=== PATIENT | female | born 1990 | race Caucasian/White ===

== ENCOUNTER → 2016-09-04 | Outpatient (CLI) | payer MEDICAID ==
[~2016-09-04] MED LIST: BETAMETHASONE SOD PHOS/ACETATE SUSP 30 MG/5 ML VIAL IM SCH; IBUP-232 PO; MACR100C2 PO; SENN1TAB PO
== END ==
LOC: HOBG 10:44
PROVIDERS: ATTEND Obstetrics & Gynecology
DX: O60.02 Preterm labor without delivery, second trimester (principal)
CPT/HCPCS: 96372; J0702

== ENCOUNTER → 2016-09-05 | Outpatient (CLI) | payer MEDICAID | LOC: HOBG 12:03 | PROVIDERS: ATTEND Obstetrics & Gynecology | DX: O60.02 Preterm labor without delivery, second trimester (principal) | CPT/HCPCS: 96372 ==

== ENCOUNTER 2016-09-25 20:41 | Emergency (ER) | payer MEDICAID ==
[2016-09-25] MEDS ORDERED: LACTATED RINGER'S 1000 ML INJ 1,000 ML IV SCH (21:34)
[2016-09-25] MEDS ORDERED: TERBUTALINE INJ 1 MG/ML AMP SQ PRN (21:45)
[2016-09-25 22:30] LABS: BACTERIA, URINE OCC /hpf; BLOOD, URINE NEG (NEG); COMMENT (UR) CULTURE INDICATED; CULTURE IF INDICATED CULTURE INDICATED; GLUCOSE,URINE NEG (NEG); KETONE, URINE NEG (NEG); MUCUS URINE FEW /lpf (OCC); NITRITE,URINE NEG (NEG); PH, URINE 6.5 (5.0-8.5); SQUAMOUS EPITHELIAL CELL URINE 9 /hpf (0-5); URINE COLOR YELLOW (YELLW/STRAW)
[2016-09-25] MEDS ORDERED: MACR100C2 PO (22:44)
--- NOTE | 2016-09-25 22:44 | PD ---
HPI Chief Complaint Pain Date Seen: Sep 25, 2016 Travel History International Travel<30 Days: No Contact w/Intl Traveler<30Days: No Known Affected Area: No History of Present Illness HPI Patient is 25-year-old white female at 33 weeks [facility] presents complaining of abdominal pain pain that comes and goes and that her stomach tightens up. History of delivery at 36 weeks in the past. Patient denies bleeding or rupture the membranes, heart rate tracing is reactive and she is having a few contractions on the monitor. Para: 1 : 2 History Obstetric History Obstetric History 1 delivery at 36 weeks Social History Alcohol Use: No Tobacco Use: No Substance Abuse: No Allergies-Medications (Allergen,Severity, Reaction): Coded Allergies: Sulfa (Verified Allergy, Severe, HIVES, 09/11/16) Home Meds Active Scripts Nitrofurantoin Monohydrate Macrocrystals (Macrobid)100 Mg [id number] Mg PO BID 7 Days Ref 0 Prov:Walker Layton II, MD 09/25/16 Review of Systems General / Constitutional: No: Fever, Weight Gain, Chills, Other Eyes: No: Diploplia, Blurred Vision, Visual changes, Pain, Photophobia HENT: No: Headaches, Vertigo, Lightheadedness Cardiovascular: No: Irregular Rhythm, Chest Pain or Discomfort, Palpitations, Tachycardia, Syncope, Varicosities, Edema, Cyanosis Respiratory: No: Cough, Short of Breath, Other Gastrointestinal: Abdominal Pain, No: Nausea, Vomiting, Diarrhea Genitourinary: No: Decreased Urinary Output, Oliguria Musculoskeletal: No: Limited ROM, Weakness, Cramping, Edema, Pain Skin: No Rash, No Itching, No Dryness, No Lumps, No Change in Pigmentation, No Change in Nails, No Alopecia, No Lesions Neurologic: No: Weakness, Dizziness, Syncope, Focal Abnormalities, Coordination Problem, Headache, Slurred Speech, Seizures Psychiatric: No: Depression, Suicidal Ideations, Homicidal Ideation Endocrine: No: Heat Intolerance, Cold Intolerance, Polydipsia, Polyuria, Other Physical Exam Narrative GENERAL: Well-nourished, well-developed patient. SKIN: Warm and dry. HEAD: Normocephalic and atraumatic. EYES: No scleral icterus. No injection or drainage. ENT: No nasal drainage noted. Mucous membranes pink. Airway patent. NECK: Supple, trachea midline. No JVD. CARDIOVASCULAR: Regular rate and rhythm without murmurs, gallops, or rubs. RESPIRATORY: Breath sounds equal bilaterally. No accessory muscle use. BREASTS: Bilateral exam showed no masses , no retractions, no nipple discharge. ABDOMEN/GI: Abdomen soft, non-tender, bowel sounds present, no rebound, no guarding Gravid to [33-] weeks size Fundal Height: [-33] GENITOURINARY: External Genitalia: intact and normal in appearance BUS glands: [-] Cervix: [-] Dilatation: [2-3] Effacement: [50-] Station: [-3] Presentation: [vtx-] Membranes: [intact ] Uterine Contractions: [-Initially melia irregularly every 3-5 minutes of our with a liter of IV fluid and subcutaneous terbutaline contractions decreased to essentially gone] FHT's: Category: [-1] Baseline: [133-] Reactive: [-yes] Variability: [mod-] Decels: [none-] EXTREMITIES: No cyanosis or edema. BACK: Nontender without obvious deformity. No CVA tenderness. NEUROLOGICAL: Awake and alert. Motor and sensory grossly within normal limits. Five out of 5 muscle strength in all muscle groups. Normal speech. Data Data Orders Vital Signs (Adult) .ON ADMISSION (09/25/16 21:34) ^ Labor Status (09/25/16 21:34) Urinalysis - C+S If Indicated (09/25/16 21:34) Fibronectin (09/25/16 21:34) Lactated Ringer's 1000 Ml Inj (Lr 1000 M (09/25/16 21:34) Terbutaline Inj (Brethine Inj) (09/25/16 21:45) Fentanyl Inj (Fentanyl Inj) (09/25/16 21:45) Urine Culture (09/25/16 21:00) Labs FFN positive Laboratory Tests Test 09/25/16 21:00 Urine Color YELLOW Urine Turbidity HAZY Urine pH 6.5 Urine Specific [place] 1.019 Urine Protein TRACE Urine Glucose (UA) NEG Urine Ketones NEG Urine Occult Blood NEG Urine Nitrite NEG Urine Bilirubin NEG Urine Urobilinogen LESS THAN 2.0 Urine Leukocyte Esterase LARGE Urine WBC 9 Urine Squamous Epithelial 9 Cells Urine Bacteria OCC Urine Mucus FEW Microscopic Urinalysis Comment CULTURE INDICATED Date/Time Procedure Status Source Growth 09/25/16 21:00 Urine Culture Received Urine Clean Catch Pending MDM Interpretation(s) Patient is a 25-year-old white female at 33 weeks presents complaining of abdominal pain denies bleeding or ruptured membranes. heart rate tracing is reactive, she is melia irregularly every 3-5 minutes. Her cervix is 2- 3/50 and -3, urinalysis is positive for large leukocyte esterase occasional bacteria but culture was indicated therefore we will treat with Macrobid 100 twice a day for a week, the contractions were ongoing interval liter of IV fluid and .25 terbutaline SQ and this essentially stopped her contractions. Her FFN is positive , she has received 2 doses of betamethasone last week just due to her history Plan Plan for patient take oral Macrobid antibiotic for UTI increase her bed rest at home Tylenol for pains increase her oral fluid intake, she can use a heating pad on low across the abdomen or soak in a bathtub.will give po terb 5 mg q 6 hr for CTXs, she needs to be at bedrest as much as possible, She is to follow- up with her OB provider or back to us if symptoms persist or worsen Diagnosis Diagnosis: Primary Impression: Threatened labor, antepartum Additional Impression: UTI (urinary tract infection) during Disposition: 01 DISCHARGE HOME Condition: Stable Scripts Nitrofurantoin Monohydrate Macrocrystals (Macrobid)100 Mg [id number] Mg PO BID 7 Days Ref 0 Prov:Walker Layton II, MD 09/25/16 Patient Instructions: General Instructions, Labor (ED), Abdominal Pain in (ED) Additional Instructions: RETURN FOR CONTRACTIONS, LOSS OF FLUID (WATER BREAKING), VAGINAL BLEEDING, OR DECREASED MOVEMENT DRINK 8-10 LARGE GLASSES OF WATER EVERY DAY KEEP SCHEDULED APPOINTMENT WITH YOUR PROVIDER Departure Forms: Tests/Procedures Walker Layton II, MD Sep 25, 2016 22:44
== END 2016-09-25 23:16 | disposition home or self-care (01) ==
LOC: HOBED 20:41
DX: O60.03 Preterm labor without delivery, third trimester (principal); O23.43 Unspecified infection of urinary tract in pregnancy, third trimester; Z3A.33 33 weeks gestation of pregnancy
CPT/HCPCS: 59025; 81001; 82731; 87086; 96360; 96372; J3105; J7120

== ENCOUNTER 2016-09-27 10:19 | Inpatient (IN) | payer MEDICAID ==
[~2016-09-27] VITALS: Ht 160 cm; Wt 60.8 kg
[2016-09-27] VITALS (45 sets, daily range): BP systolic 72–140; BP diastolic 53–125; PULSE 69–151; RESP 16–20; TEMP 97.6–98
[~2016-09-27 10:19] MED LIST changes: -BETAMETHASONE SOD PHOS/ACETATE SUSP 30 MG/5 ML VIAL IM SCH; -IBUP-232 PO; -SENN1TAB PO
--- NOTE | 2016-09-27 11:28 | HHI.HP ---
HPI Chief Complaint My water broke Date Seen: Sep 27, 2016 Travel History International Travel<30 Days: No Contact w/Intl Traveler<30Days: No Known Affected Area: No History of Present Illness HPI This patient is a 25-year-old white female at 34-1/2 weeks who presents with PROM today , no bleeding and only a few contractions. [facility] , and she was here 2 days ago for contractions she was 2-3 cm dilated and we did a fibronectin which was positive at that time she received a shot of steroids and the second shot the next day. And today is the day after that her water broke. heart rate tracing is reactive she is having occasional contractions amnio sure is positive today Para: 1 : 2 History Obstetric History Obstetric History 1 delivery at 36 weeks Social History Alcohol Use: No Tobacco Use: No Substance Abuse: No Allergies-Medications (Allergen,Severity, Reaction): Coded Allergies: Sulfa (Verified Allergy, Severe, HIVES, 09/11/16) Home Meds Active Scripts Nitrofurantoin Monohydrate Macrocrystals (Macrobid)100 Mg [id number] Mg PO BID 7 Days Ref 0 Prov:Walker Layton II, MD 09/25/16 Review of Systems General / Constitutional: No: Fever, Weight Gain, Chills, Other Eyes: No: Diploplia, Blurred Vision, Visual changes, Pain, Photophobia HENT: No: Headaches, Vertigo, Lightheadedness Cardiovascular: No: Irregular Rhythm, Chest Pain or Discomfort, Palpitations, Tachycardia, Syncope, Varicosities, Edema, Cyanosis Respiratory: No: Cough, Short of Breath, Other Gastrointestinal: No: Nausea, Vomiting, Diarrhea Genitourinary: No: Decreased Urinary Output, Oliguria Musculoskeletal: No: Limited ROM, Weakness, Cramping, Edema, Pain Skin: No Rash, No Itching, No Dryness, No Lumps, No Change in Pigmentation, No Change in Nails, No Alopecia, No Lesions Neurologic: No: Weakness, Dizziness, Syncope, Focal Abnormalities, Coordination Problem, Headache, Slurred Speech, Seizures Psychiatric: No: Depression, Suicidal Ideations, Homicidal Ideation Endocrine: No: Heat Intolerance, Cold Intolerance, Polydipsia, Polyuria, Other Physical Exam Narrative GENERAL: Well-nourished, well-developed patient. SKIN: Warm and dry. HEAD: Normocephalic and atraumatic. EYES: No scleral icterus. No injection or drainage. ENT: No nasal drainage noted. Mucous membranes pink. Airway patent. NECK: Supple, trachea midline. No JVD. CARDIOVASCULAR: Regular rate and rhythm without murmurs, gallops, or rubs. RESPIRATORY: Breath sounds equal bilaterally. No accessory muscle use. BREASTS: Bilateral exam showed no masses , no retractions, no nipple discharge. ABDOMEN/GI: Abdomen soft, non-tender, bowel sounds present, no rebound, no guarding Gravid to [34-] weeks size Fundal Height: [-34] GENITOURINARY: External Genitalia: intact and normal in appearance BUS glands: [-] Cervix: [-] Dilatation: [3-] Effacement: [60-] Station: [-3] Presentation: [-vtx] Membranes: ruptured] amnio sure positive Uterine Contractions: [-irreg] FHT's: Category: [1-] Baseline: [-133] Reactive: [yes-] Variability: [-mod] Decels: [-none] EXTREMITIES: No cyanosis or edema. BACK: Nontender without obvious deformity. No CVA tenderness. NEUROLOGICAL: Awake and alert. Motor and sensory grossly within normal limits. Five out of 5 muscle strength in all muscle groups. Normal speech. Data Data Labs Amnio sure positive Assessment/Plan Assessment and Plan This patient is a 25-year-old white female at 34-1/2 weeks who presents with premature rupture the membranes. Patient's denies bleeding or contraction pain. [facility] And records are available. GBS culture has not been done at this early both she will receive IV antibiotics because she's premature and needing delivery per ACOG guidelines for PPROM at 34 weeks Walker Layton II, MD Sep 27, 2016 11:28
[2016-09-27] MEDS ORDERED: CALCIUM GLUCONATE 10% 1 GM/10 ML VIAL IV PRN (11:30)
[2016-09-27] MEDS ORDERED: SODIUM CHLORIDE 0.9% FLUSH 10 ML FLUSH IV FLUSH PRN ×2 (11:30→19:45)
[2016-09-27] MEDS ORDERED: ONDANSETRON HCL 4 MG/2 ML VIAL IV PRN ×2 (11:30→18:00)
[2016-09-27] MEDS ORDERED: OXYTOCIN 30 UNITS-500ML PREMIX 500 ML IV SCH (11:30)
[2016-09-27] MEDS ORDERED: PENICILLIN G POTASSIUM INJ 5,000,000 UNITS in SODIUM CHLORIDE 0.9% INJ 100 ML IV SCH (11:30)
[2016-09-27] MEDS: LACTATED RINGER'S 1000 ML INJ 1,000 ML IV SCH ×2 (12:32→16:49)
[2016-09-27 13:25] LABS: AMPHETAMINE, URINE NEG (NEG); BARBITURATES, URINE NEG (NEG); COCAINE, URINE NEG (NEG)
[2016-09-27 14:49] LABS: AUTOMATED NEUTROPHIL # 8.9 TH/MM3 (1.8-7.7); BASOPHIL % 0.4 % (0.0-2.0); EOSINOPHIL # 0.1 TH/MM3 (0-0.4); EOSINOPHIL % 0.6 % (0.0-4.0); HEMATOCRIT 34.4 % (35.0-46.0); HEMO FLAGS DIFF FINAL; LYMPH % 13.3 % (9.0-44.0); LYMPHOCYTE # 1.5 TH/MM3 (1.0-4.8); MEAN CELL VOLUME 85.8 FL (80.0-100.0); MEAN CORPUSCULAR HGB CONC 33.8 % (32.0-36.0); NEUT % 80.7 % (16.0-70.0); PLATELET COUNT 183 TH/MM3 (150-450); RED BLOOD COUNT 4.02 MIL/MM3 (4.00-5.30); RED CELL DISTRIBUTION WIDTH 13.6 % (11.6-17.2)
[2016-09-27] MEDS ORDERED: PENICILLIN G POTASSIUM INJ 2,500,000 UNITS in SODIUM CHLORIDE 0.9% INJ 100 ML IV SCH (16:00)
[2016-09-27] MEDS ORDERED: DIPHTH/TETANUS/ACEL PERTUSSIS (BOOSTER) 0.5 ML VIAL/PFS IM ONE (16:00)
[2016-09-27] MEDS ORDERED: MEASLES, MUMPS, RUBELLA VACCINE 0.5 ML VIAL SQ ONE (16:00)
[2016-09-27] MEDS ORDERED: LACTATED RINGER'S 1000 ML INJ 1,000 ML IV PRN (17:46)
[2016-09-27] MEDS ORDERED: LIDOCAINE HCL 1% 50 ML VIAL INFIL PRN (18:00)
[2016-09-27] MEDS ORDERED: OXYTOCIN 30 UNITS-500ML PREMIX 500 ML IV ONE (18:00)
[2016-09-27] MEDS ORDERED: MINERAL OIL 10 ML VIAL TOPICAL PRN (18:00)
[2016-09-27] MEDS ORDERED: CITRIC ACID-SODIUM CITRATE LIQ 30 ML UDC PO SCH (18:00)
[2016-09-27] MEDS ORDERED: SODIUM CHLORID 0.9% 500 ML INJ 500 ML IV PRN (18:00)
[2016-09-27] MEDS ORDERED: SODIUM CHLOR 0.9% 1000 ML INJ 1,000 ML IV PRN (18:06)
--- NOTE | 2016-09-27 18:12 | PD.LABORPN ---
Subjective Subjective Patient is doing well. She is in pain from the labor. No fever, chills. Objective Vital Signs Vital Signs Date Time Temp Pulse Resp B/P Pulse Ox O2 Delivery O2 Flow Rate FiO2 09/27/16 17:11 20 09/27/16 17:11 97.6 09/27/16 14:15 98.0 09/27/16 14:06 88 124/69 09/27/16 13:27 89 140/91 09/27/16 12:00 18 09/27/16 11:51 98 133/82 Objective Pelvic Exam: Dilatation: 4 Effacement: 80 Station: -2 Presentation: Vertex Membranes: Rupture Uterine Contractions: q 2-3 minutes FHT's: Category: 1 Baseline: 135 Reactive: Yes Variability: Moderate Decels: Non-frequent variables Assessment/Plan Assessment and Plan Labor Continue current management If persistent variables, administer amnioinfusion Carlyle Quinn MD R2 Sep 27, 2016 18:12
[2016-09-27] MEDS ORDERED: fentaNYL 2MCG-BUPIV 0.125% INJ 100 ML ONE (18:14)
[2016-09-27] MEDS ORDERED: BUPIVACAINE HCL PF 0.25% 10 ML VIAL ONE (18:48)
[2016-09-27] MEDS ORDERED: ePHEDrine/NS 25 MG/5 ML SYR ONE (19:07)
[2016-09-27] MEDS ORDERED: NO SYSTEM NARCOTICS PRN (19:15)
[2016-09-27] MEDS ORDERED: fentaNYL 2MCG-BUPIV 0.125% 100 ML EPIDURAL SCH (19:15)
[2016-09-27] MEDS ORDERED: DO NOT ADMINISTER ANTICOAGULANTS PRN (19:15)
[2016-09-27] MEDS ORDERED: ePHEDrine/NS 25 MG/5 ML SYR IV PRN (19:15)
[2016-09-27] MEDS ORDERED: BENZOCAINE 20% TOPICAL SPRAY 60 ML CAN TOPICAL PRN (19:45)
[2016-09-27] MEDS ORDERED: ZOLPIDEM TARTRATE 5 MG TAB PO PRN (19:45)
[2016-09-27] MEDS ORDERED: ONDANSETRON ODT 4 MG TAB PO PRN (19:45)
[2016-09-27] MEDS ORDERED: ACETAMINOPHEN 325 MG TAB PO PRN (19:45)
[2016-09-27] MEDS ORDERED: ALUMINUM/MAGNESIUM/SIMETH 30 ML CUP PO PRN (19:45)
[2016-09-27] MEDS ORDERED: WITCH HAZEL 50%/GLYCERIN 12.5% 40 PAD JAR TOPICAL PRN (19:45)
[2016-09-27] MEDS ORDERED: DOCUSATE SODIUM 50 MG/SENNA 8.6 MG TAB PO PRN (19:45)
[2016-09-27 19:47] LABS: BLOOD GAS BASE EXCESS -4.6 mmol/L (-2-2); BLOOD GAS O2 HGB SATURATION 22 % (90-100); CORD BLOOD GAS HCO3 21 mmol/L (21-29); CORD BLOOD GAS PCO2 43 mmHG (34-78); CORD BLOOD GAS PH 7.31 (7.14-7.42); CORD BLOOD GAS PO2 15 mmHG (3.0-40.0)
--- NOTE | 2016-09-27 19:47 | PD.OB.DELI ---
Delivery Date: Sep 27, 2016 Anesthesia: Epidural Episiotomy: None Vaginal Delivery: Normal Presentation: Occiput anterior Nuchal Cord: x1 (loose CAN x1) Delayed cord clamping (45 sec): Yes : Female, Single One Minute : 8 Five Minute : 9 Weight: 1710g Placenta: Spontaneous delivery, Intact, 3 vessel cord Laceration: No lacerations Additional Information Resident delivery: Fito, PGY1. Assisted by Lia Quinn. Attending present: Dr. Layton. EBL: 150mL. Felicita Payton MD R1 Sep 27, 2016 19:47
[2016-09-27 19:48] LABS: DRAW SITE CORD GAS; STAT NO
--- NOTE | 2016-09-27 19:56 | PD.LABORPN ---
Subjective Subjective OB attending note This patient delivered at 34-1/2 weeks vaginally over an intact perineum female weight 1710 g 8/9 with neonatology present, cord blood obtained cord gas pending at time of dictation, baby is delivered without complication and we had a 1 minute delay cord clamping, baby handed to waiting neonatology staff. Placenta delivered spontaneously intact and sent to pathology patient delivery blood loss 200 cc and mother baby doing well, delivery performed by the family practice merchandising intern who did an excellent job Objective Vital Signs Vital Signs Date Time Temp Pulse Resp B/P Pulse Ox O2 Delivery O2 Flow Rate FiO2 09/27/16 19:10 84 110/61 09/27/16 19:10 76 09/27/16 19:05 79 85/64 09/27/16 19:04 84 114/59 09/27/16 19:02 81 99/54 09/27/16 19:01 87 72/53 09/27/16 19:00 74 105/61 09/27/16 18:40 82 09/27/16 18:37 83 118/64 09/27/16 18:36 73 140/125 09/27/16 18:35 93 09/27/16 18:30 89 09/27/16 18:25 100 09/27/16 17:11 20 09/27/16 17:11 97.6 09/27/16 14:15 98.0 09/27/16 14:06 88 124/69 09/27/16 13:27 89 140/91 09/27/16 12:00 18 Objective Walker Layton II, MD Sep 27, 2016 19:56
[2016-09-27] MEDS ORDERED: SODIUM CHLORIDE 0.9% FLUSH 10 ML FLUSH IV FLUSH SCH ×2 (21:00)
[2016-09-28] VITALS: BP 114/73; PULSE 96; RESP 16; TEMP 98.2
[2016-09-28] MEDS: IBUPROFEN 600 MG TAB PO PRN ×4 (00:52→19:46)
[2016-09-28 05:49] LABS: AUTOMATED NEUTROPHIL # 8.2 TH/MM3 (1.8-7.7); BASOPHIL # 0.1 TH/MM3 (0-0.2); BASOPHIL % 0.6 % (0.0-2.0); EOSINOPHIL # 0.1 TH/MM3 (0-0.4); EOSINOPHIL % 1.3 % (0.0-4.0); HEMATOCRIT 31.4 % (35.0-46.0); HEMO FLAGS DIFF FINAL; LYMPH % 19.8 % (9.0-44.0); LYMPHOCYTE # 2.3 TH/MM3 (1.0-4.8); MEAN CELL VOLUME 85.9 FL (80.0-100.0); MEAN CORPUSCULAR HEMOGLOBIN 28.4 PG (27.0-34.0); MONO % 7.4 % (0.0-8.0); NEUT % 70.9 % (16.0-70.0); PLATELET COUNT 176 TH/MM3 (150-450); RED BLOOD COUNT 3.66 MIL/MM3 (4.00-5.30); RED CELL DISTRIBUTION WIDTH 13.8 % (11.6-17.2); WHITE BLOOD COUNT 11.6 TH/MM3 (4.0-11.0)
--- NOTE | 2016-09-28 08:52 | HHI.OB ---
Subjective Post Day: 1 Remarks Ms. Daniels is PPD from (09/28 at 1931) following PPROM. Ms. Daniels states that she is doing well this morning. Patient reports that her pain is controlled with Motrin. Patient ambulating well. Patient denies shortness of breath, leg swelling, or dysuria. Patient is pumping breast milk; she states that this is doing well. Patient reports improved appetite this morning; she has already had a bowel movement. Light vaginal bleeding. Objective Vitals/I&O Vital Signs Date Time Temp Pulse Resp B/P Pulse Ox O2 Delivery O2 Flow Rate FiO2 09/28/16 00:00 98.2 09/28/16 00:00 96 16 114/73 09/27/16 21:30 97.8 18 09/27/16 21:15 107 122/77 09/27/16 21:15 18 09/27/16 21:10 95 119/71 09/27/16 21:05 115 128/74 09/27/16 21:00 100 124/78 09/27/16 21:00 16 09/27/16 20:55 105 123/74 09/27/16 20:50 87 110/84 09/27/16 20:45 92 120/71 09/27/16 20:40 16 09/27/16 20:40 70 107/84 09/27/16 20:36 86 127/66 09/27/16 20:30 89 140/79 09/27/16 20:25 87 129/76 09/27/16 20:21 88 126/80 09/27/16 20:21 18 09/27/16 20:16 93 121/77 09/27/16 20:15 18 09/27/16 20:13 69 117/67 09/27/16 20:11 92 80/57 09/27/16 20:05 83 113/69 09/27/16 20:00 90 121/73 09/27/16 20:00 18 09/27/16 19:55 99 118/69 09/27/16 19:51 90 120/73 09/27/16 19:45 93 138/88 09/27/16 19:45 18 09/27/16 19:40 120 127/87 09/27/16 19:35 116 112/71 4/9/17 19:30 18 09/27/16 19:21 151 127/94 09/27/16 19:15 90 132/67 09/27/16 19:10 84 110/61 09/27/16 19:10 76 09/27/16 19:05 79 85/64 09/27/16 19:04 84 114/59 09/27/16 19:02 81 99/54 09/27/16 19:01 87 72/53 09/27/16 19:00 74 105/61 09/27/16 18:40 82 09/27/16 18:37 83 118/64 09/27/16 18:36 73 140/125 09/27/16 18:35 93 09/27/16 18:30 89 09/27/16 18:25 100 09/27/16 18:14 18 09/27/16 17:11 20 09/27/16 17:11 97.6 09/27/16 14:15 98.0 09/27/16 14:06 88 124/69 09/27/16 13:27 89 140/91 09/27/16 12:00 18 09/27/16 11:51 98 133/82 Objective Remarks GENERAL: Well-nourished, well-developed patient. CARDIOVASCULAR: Regular rate and rhythm without murmurs. Normal perfusion grossly. RESPIRATORY: CTAB, normal rate. ABDOMEN/GI: Abdomen soft, non-tender. Fundus: Firm, non-tender at umbilicus. GENITOURINARY: Light to moderate bleeding. EXTREMITIES: No cyanosis or edema, non-tender, without signs of DVT. Medications and IVs Current Medications Medications (Trade) Dose Ordered Sig/Kalyn Route Start Time Stop Time Status Last Admin (NS Flush) 2 ml BID IV FLUSH 09/27/16 21:00 09/27/16 21:00 (NS Flush) 2 ml UNSCH PRN IV FLUSH 09/27/16 19:45 (Tylenol) 650 mg Q4H PRN PO 09/27/16 19:45 (Motrin) 600 mg Q6H PRN PO 09/27/16 19:45 09/28/16 07:13 (Americaine 20% Top Spr) 1 spray Q4H PRN TOPICAL 09/27/16 19:45 09/28/16 00:52 (Tucks Pads) 1 applic QID PRN TOPICAL 09/27/16 19:45 09/28/16 00:52 (Elvira-Colace) 2 tab Q12H PRN PO 09/27/16 19:45 (Ambien) 5 mg HS PRN PO 09/27/16 19:45 (Mag-Al Plus Susp Liq) 15 ml Q8H PRN PO 09/27/16 19:45 (Zofran Odt) 4 mg Q6H PRN PO 09/27/16 19:45 Assessment/Plan Problem List: (1) care and examination Assessment and Plan 25-year-old G2 P who is PPD 1 from following PPROM. -Continue Percocet/Motrin for pain control -Continue stool softener -Continue to encourage ambulation -Continue pumping breast milk; can consult if necessary -Pelvic rest -Plan for 6 week follow-up Discharge Planning Anticipate discharge tomorrow Michael Knight MD R2 Sep 28, 2016 08:52
[2016-09-28 19:30] VITALS: BP 123/71; PULSE 83; RESP 18; TEMP 98.2
[2016-09-29 06:08] LABS: AUTOMATED NEUTROPHIL # 5.6 TH/MM3 (1.8-7.7); BASOPHIL # 0.1 TH/MM3 (0-0.2); BASOPHIL % 0.6 % (0.0-2.0); EOSINOPHIL # 0.4 TH/MM3 (0-0.4); EOSINOPHIL % 4.1 % (0.0-4.0); HEMATOCRIT 29.6 % (35.0-46.0); HEMO FLAGS DIFF FINAL; LYMPHOCYTE # 3.6 TH/MM3 (1.0-4.8); MEAN CELL VOLUME 86.2 FL (80.0-100.0); MEAN CORPUSCULAR HEMOGLOBIN 29.4 PG (27.0-34.0); MEAN CORPUSCULAR HGB CONC 34.1 % (32.0-36.0); MONO % 6.2 % (0.0-8.0); NEUT % 54.1 % (16.0-70.0); PLATELET COUNT 189 TH/MM3 (150-450); RED BLOOD COUNT 3.44 MIL/MM3 (4.00-5.30); RED CELL DISTRIBUTION WIDTH 13.7 % (11.6-17.2); WHITE BLOOD COUNT 10.3 TH/MM3 (4.0-11.0)
--- NOTE | 2016-09-29 07:22 | HHI.DCPOC ---
Discharge Care Plan Diagnosis: (1) care and examination Your Health Problems Are: Vaginal delivery Report Symptoms to Your Doctor -Temperate above 100.5 degrees -Redness, of incision or excessive or foul smelling drainage -Unusual pain or calf pain -Increased vaginal bleeding -Painful or difficulty urinating -Feelings of extreme sadness or anxiety after 2 weeks Goals to Promote Your Health * To prevent worsening of your condition and complications * To maintain your health at the optimal level Directions to Meet Your Goals Take your medications as prescribed Follow your dietary instruction Follow activity as directed Ensure plenty of rest for recovery Drink fluids for hydration Keep your appointments as scheduled Take your immunizations and boosters as scheduled If your symptoms worsen call your PCP, if no PCP go to Urgent Care Center or Emergency Room Smoking is Dangerous to Your Health. Avoid second hand smoke Call the 24-hour crisis hotline for domestic abuse at Michael Knight MD R2 Sep 29, 2016 07:22
--- NOTE | 2016-09-29 07:22 | HHI.OB ---
Subjective Post Day: 2 Remarks Ms. Daniels is PPD 2 from (09/28 at 1931) following PPROM. Ms. Daniels states that she is doing well this morning. Patient reports that her pain is controlled with Motrin. She gets cramping with breast pumping but denies abdominal pain. Patient ambulating well. Patient denies shortness of breath, leg swelling, or dysuria. Patient is pumping breast milk; she states that she will meet with network security consultant today. Patient passing gas and has had BM. Light vaginal bleeding. Patient states that she does not have a vehicle to visit in NICU. ( Michael Knight MD R2) Objective Vitals/I&O Vital Signs Date Time Temp Pulse Resp B/P Pulse Ox O2 Delivery O2 Flow Rate FiO2 09/28/16 19:30 98.2 83 18 123/71 Objective Remarks GENERAL: Well-nourished, well-developed patient. CARDIOVASCULAR: Regular rate and rhythm without murmurs. Normal perfusion grossly. RESPIRATORY: CTAB, normal rate. ABDOMEN/GI: Abdomen soft, non-tender. Fundus: Firm, non-tender at umbilicus. GENITOURINARY: Light bleeding. EXTREMITIES: No cyanosis or edema, non-tender, without signs of DVT. Medications and IVs Current Medications Medications (Trade) Dose Ordered Sig/Kalyn Route Start Time Stop Time Status Last Admin (NS Flush) 2 ml BID IV FLUSH 09/27/16 21:00 09/27/16 21:00 (NS Flush) 2 ml UNSCH PRN IV FLUSH 09/27/16 19:45 (Tylenol) 650 mg Q4H PRN PO 09/27/16 19:45 (Motrin) 600 mg Q6H PRN PO 09/27/16 19:45 09/28/16 19:46 (Americaine 20% Top Spr) 1 spray Q4H PRN TOPICAL 09/27/16 19:45 09/28/16 00:52 (Tucks Pads) 1 applic QID PRN TOPICAL 09/27/16 19:45 09/28/16 00:52 (Elvira-Colace) 2 tab Q12H PRN PO 09/27/16 19:45 (Ambien) 5 mg HS PRN PO 09/27/16 19:45 (Mag-Al Plus Susp Liq) 15 ml Q8H PRN PO 09/27/16 19:45 (Zofran Odt) 4 mg Q6H PRN PO 09/27/16 19:45 (Michael Knight MD R2) Assessment/Plan Problem List: (1) care and examination Assessment and Plan 25-year-old who is PPD 2 from following PPROM. -Continue Motrin for pain control -Continue stool softener -Continue to encourage ambulation -Continue pumping breast milk; network security consultant assisting -Pelvic rest -Discussed need for 6 week follow-up; patient agrees Discharge Planning Anticipate discharge today (Michael Knight MD R2) Attestation Patient seen and examined. Agree with resident's assessment and plan. (Leonora Art MD) Michael Knight MD R2 Sep 29, 2016 07:22 Leonora Art MD Sep 29, 2016 10:53
[2016-09-29] MEDS ORDERED: IBUP-232 PO (07:23)
[2016-09-29] MEDS ORDERED: SENN1TAB PO (07:23)
[2016-10-02 11:15] LABS: BATH SALTS (MDPV) UR NEG (NEG); ECSTASY (MDMA) UR NEG (NEG); HEROIN (6-ACETYLMORPHINE) UR NEG (NEG); K2 SPICE UR NEG (NEG); OBMETHADONE UR NEG (NEG); PHENCYCLIDINE URINE NEG (NEG)
[2016-10-02 11:16] LABS: OXYCODONE (PERCODAN) NEG (NEG)
== END 2016-09-29 12:39 | disposition home or self-care (01) | DRG 775 ==
LOC: HOBED 10:19 → H2EB 11:19 → H1EA 22:07
PROVIDERS: ADMIT Obstetrics & Gynecology Maternal & Fetal Medicine; ATTEND Obstetrics & Gynecology Maternal & Fetal Medicine
PROC: 10E0XZZ Delivery of Products of Conception, External Approach (ICD-10-PCS; principal; 2016-09-27)
PROC: 3E0S3CZ (ICD-10-PCS; 2016-09-27)
PROC: 00HU33Z Insertion of Infusion Device into Spinal Canal, Percutaneous Approach (ICD-10-PCS; 2016-09-27)
DX: O42.913 Preterm premature rupture of membranes, unspecified as to length of time between rupture and onset of labor, third trimester (principal); Z37.0 Single live birth; Z3A.34 34 weeks gestation of pregnancy
CPT/HCPCS: 59025; 80307; 81001; 82731; 82805; 84112; 85025; 86900; 86901; 87086; 88307; 90715; 96360; 96372; 99285; G0481; J2540; J2590; J3010; J3105; J7120

== ENCOUNTER 2017-03-18 22:45 | Emergency (ER) | payer SELFPAY ==
[~2017-03-18] VITALS: Ht 160 cm; Wt 60.3 kg
[~2017-03-18 22:45] MED LIST changes: +IBUP-232 PO; -MACR100C2 PO; +SENN1TAB PO
[2017-03-18 22:51] VITALS: BP 112/72; PULSE 87; RESP 16; TEMP 97.8; O2SAT 99
--- NOTE | 2017-03-18 23:16 | PD ---
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 She says she has noted some mild discharge and itching and thought she had a yeast infection. She went to the pharmacy and got [id number] Monistat. After putting the Monistat and she had severe vaginal burning. She does say that she seems to be sensitive to a lot of products. She has not used the Monistat for. She has not had fever or chills. PFSH Past Medical History Anemia: Yes Anxiety: Yes Diminished Hearing: No Immunizations Current: Yes ?: Not LMP: 03/02/17 : 1 Para: 1 Ovarian Cysts: Yes Social History Alcohol Use: No Tobacco Use: No Substance Use: No Allergies-Medications (Allergen,Severity, Reaction): Coded Allergies: Sulfa (Sulfonamide Antibiotics) (Unverified Allergy, Severe, HIVES, ) Reported Meds & Prescriptions Reported Meds & Active Scripts Active Senna Plus 8.6-50 mg (Sennosides-Docusate Sodium) 1 Tab Tab 2 Tab PO Q12H PRN Ibuprofen 600 Mg Tab 600 Mg PO Q6H PRN Review of Systems General / Constitutional: No: Fever, Chills Eyes: No: Diploplia HENT: No: Headaches Respiratory: No: Cough, Shortness of Breath Gastrointestinal: No: Vomiting, Diarrhea Genitourinary: Positive: Discharge Musculoskeletal: No: Myalgias Skin: Positive Itching, No Rash Physical Exam Narrative GENERAL: Well-developed female SKIN: Focused skin assessment warm/dry. HEAD: Atraumatic. Normocephalic. EYES: Pupils equal and round. No scleral icterus. No injection or drainage. ENT: No nasal bleeding or discharge. Mucous membranes pink and moist. NECK: Trachea midline. No JVD. GASTROINTESTINAL: Abdomen soft, non-tender, nondistended. Hepatic and splenic margins not palpable. COBOL APPLICATION DEVELOPER: There is some erythema of the vaginal mucosa. I do not see any ulcerative or vesicular lesions. There is a large amount of white cream which she had put in earlier. I removed some of it with large swabs MUSCULOSKELETAL: No obvious deformities. No clubbing. No cyanosis. No edema. NEUROLOGICAL: Awake and alert. No obvious cranial nerve deficits. Motor grossly within normal limits. Normal speech. PSYCHIATRIC: Appropriate mood and affect; insight and judgment normal. Data Data Last Documented VS Vital Signs Date Time Temp Pulse Resp B/P (MAP) Pulse Ox O2 Delivery O2 Flow Rate FiO2 03/18/17 22:51 97.8 87 16 112/72 (85) 99 MDM Medical Decision Making Medical Screen Exam Complete: Yes Emergency Medical Condition: Yes Medical Record Reviewed: Yes Differential Diagnosis Differential includes [place] vaginitis, sensitivity to Monistat Narrative Course Patient will be given a single dose of Diflucan for treatment of her yeast vaginitis. I recommended cool baths and Benadryl for the burning Diagnosis Primary Impression: Vaginitis Disposition: 01 DISCHARGE HOME Condition: Stable Moe Thorne MD Mar 18, 2017 23:16
[2017-03-18] MEDS ORDERED: FLUCONAZOLE 100 MG TAB PO ONE (23:30)
== END 2017-03-18 23:41 | disposition home or self-care (01) ==
LOC: PHED 22:45
DX: N76.0 Acute vaginitis (principal); B37.3 Candidiasis of vulva and vagina
CPT/HCPCS: 99283

== ENCOUNTER 2017-08-24 22:37 | Emergency (ER) | payer SELFPAY ==
[~2017-08-24] VITALS: Ht 162.6 cm; Wt 59.5 kg
[2017-08-24 22:42] VITALS: BP 113/68; PULSE 110; RESP 14; TEMP 98.9; O2SAT 99
[2017-08-24] MEDS ORDERED: SODIUM CHLOR 0.9% 1000 ML INJ 1,000 ML IV ONE (23:31)
[2017-08-24] MEDS ORDERED: ONDANSETRON HCL 4 MG/2 ML VIAL IVP ONE (23:45)
[2017-08-25] VITALS: BP 139/88; PULSE 87; RESP 18; TEMP 97.5; O2SAT 98
--- NOTE | 2017-08-25 00:02 | PD ---
HPI Chief Complaint: GI Complaint Time Seen by Provider: 23:17 Travel History International Travel<30 days: No Contact w/Intl Traveler<30days: No Traveled to known affect area: No History of Present Illness HPI The patient's 26-year-old female last menstruation was approximately 5 weeks prior. She reports about 2 days of low back pain with radiation to the legs posteriorly. She also has nausea vomiting. She additionally reports pain in the pelvis. Timing is become constant. She has had morning sickness in the past and believes that it is different this time. She denies vaginal bleeding. She denies vaginal discharge. She denies any history of sexually transmitted disease. Pain is slightly worse with palpation in the abdomen. PFSH Past Medical History Anemia: Yes Anxiety: Yes Diminished Hearing: No Immunizations Current: Yes Tetanus Vaccination: < 5 Years ?: LMP: 07/23/17 : 2 Para: 1 Ovarian Cysts: Yes Past Surgical History Surgical History: No Previous Surgery Social History Alcohol Use: Yes (rarely) Tobacco Use: No Substance Use: No Allergies-Medications (Allergen,Severity, Reaction): Coded Allergies: Sulfa (Sulfonamide Antibiotics) (Verified Allergy, Severe, HIVES, 08/24/17) Reported Meds & Prescriptions Reported Meds & Active Scripts Active No Active Prescriptions or Reported Medications Review of Systems Except as stated in HPI: all other systems reviewed are Neg General / Constitutional: No: Fever Physical Exam Narrative GENERAL: 26-year-old female pleasant well-nourished well-developed PELVIC: Os closed. Trace dried blood in the vault. Trace white discharge. No significant CMT adnexal mass or adnexal tenderness. Vital Signs Date Time Temp Pulse Resp B/P (MAP) Pulse Ox O2 Delivery O2 Flow Rate FiO2 08/24/17 22:42 98.9 110 14 113/68 (83) 99 SKIN: Warm and dry. HEAD: Atraumatic. Normocephalic. EYES: Pupils equal and round. No scleral icterus. No injection or drainage. ENT: No nasal bleeding or discharge. Mucous membranes pink and moist. NECK: Trachea midline. No JVD. CARDIOVASCULAR: Tachycardia. Regular rhythm. RESPIRATORY: No accessory muscle use. Clear to auscultation. Breath sounds equal bilaterally. GASTROINTESTINAL: Abdomen soft, non-tender, nondistended. Hepatic and splenic margins not palpable. MUSCULOSKELETAL: Extremities without clubbing, cyanosis, or edema. No obvious deformities. NEUROLOGICAL: Awake and alert. No obvious cranial nerve deficits. Motor grossly within normal limits. Five out of 5 muscle strength in the arms and legs. Normal speech. PSYCHIATRIC: Appropriate mood and affect; insight and judgment normal. Data Data Last Documented VS Vital Signs Date Time Temp Pulse Resp B/P (MAP) Pulse Ox O2 Delivery O2 Flow Rate FiO2 08/24/17 22:42 98.9 110 14 113/68 (83) 99 Orders Orders Beta Hcg (Quant/Titer) (08/24/17 23:31) Complete Blood Count With Diff (08/24/17 23:31) Basic Metabolic Panel (Bmp) (08/24/17 23:31) Complete Rh (08/24/17 23:31) Us Pelvis (Ques Preg/Ectopic) (08/24/17 ) Urinalysis - C+S If Indicated (08/24/17 23:31) Iv Access Insert/Monitor (08/24/17 23:31) Ecg Monitoring (08/24/17 23:31) Sodium Chlor 0.9% 1000 Ml Inj (Ns 1000 M (08/24/17 23:31) Ondansetron Inj (Zofran Inj) (08/24/17 23:45) Ed Urine Pregnancytest Poc (08/24/17 23:31) [facility] Medical Decision Making Medical Screen Exam Complete: Yes Emergency Medical Condition: Yes Medical Record Reviewed: Yes Differential Diagnosis IUP, UTI, ectopic , ov torsion, appendicitis, TOA, cervicitis, BV, Trichomoniasis, ov cyst, hernia, mittelschmerz, pain from menstruation Narrative Course case discussed with Dr. Núñez at midnight. Follow-up blood work and ultrasound Scripts No Active Prescriptions or Reported Meds Issa Stone MD Aug 25, 2017 00:02
[2017-08-25 00:17] LABS: AUTOMATED NEUTROPHIL # 10.9 TH/MM3 (1.8-7.7); BASOPHIL # 0.1 TH/MM3 (0-0.2); BASOPHIL % 0.6 % (0.0-2.0); BILIRUBIN, URINE NEG (NEG); BLOOD, URINE NEG (NEG); CALCIUM 8.9 MG/DL (8.5-10.1); EOSINOPHIL % 0.2 % (0.0-4.0); GLUCOSE,URINE NEG (NEG); HEMOGLOBIN 14.7 GM/DL (11.6-15.3); KETONE, URINE 80 OR GREATER mg/dL (NEG); LYMPH % 5.1 % (9.0-44.0); LYMPHOCYTE # 0.6 TH/MM3 (1.0-4.8); MEAN CELL VOLUME 84.9 FL (80.0-100.0); MEAN CORPUSCULAR HGB CONC 34.1 % (32.0-36.0); MEAN PLATELET VOLUME 10.1 FL (7.0-11.0); MONO % 4.9 % (0.0-8.0); MONOCYTE # 0.6 TH/MM3 (0-0.9); NEUT % 89.2 % (16.0-70.0); NITRITE,URINE NEG (NEG); PH, URINE 7.5 (5.0-8.5); PLATELET COUNT 214 TH/MM3 (150-450); RED BLOOD COUNT 5.06 MIL/MM3 (4.00-5.30); RED CELL DISTRIBUTION WIDTH 13.8 % (11.6-17.2); URINE COLOR YELLOW (YELLW/STRAW); URINE LEUKOCYTE ESTERASE NEG (NEG); WHITE BLOOD COUNT 12.2 TH/MM3 (4.0-11.0)
[2017-08-25 00:18] LABS: BICARBONATE 24.6 MEQ/L (21.0-32.0)
[2017-08-25 00:21] LABS: CREATININE 0.7 MG/DL (0.50-1.00)
[2017-08-25] MEDS ORDERED: ACETAMINOPHEN 325 MG TAB PO ONE (00:30)
[2017-08-25 00:35] LABS: MUCUS URINE MOD /lpf (OCC)
[2017-08-25 00:36] LABS: BACTERIA, URINE OCC /hpf
[2017-08-25 00:37] LABS: RBC, URINE 0-3 /hpf (0-3); WBC, URINE 0-2 /hpf (0-5)
--- NOTE | 2017-08-25 02:01 | RADRPT ---
EXAM DATE/TIME: 08/25/2017 01:05 [place] COMPARISON: No previous studies available for comparison. INDICATIONS : Pelvic pain. LAB(S): Beta-hC MEDICAL HISTORY : . Ovarian cysts. Anxiety. SURGICAL HISTORY : None. ENCOUNTER: Initial ACUITY: 1 day PAIN SCORE: 4/10 LOCATION: Bilateral pelvis MEASUREMENTS: UTERUS: 10.9 x 7.0 x 4.8 cm ENDOMETRIAL STRIPE: 17 mm RIGHT OVARY: 4.1 x 2.4 x 2.3 cm LEFT OVARY: 3.7 x 2.5 x 2.4 cm CROWN RUMP LENGTH: Non visualized. FHR: Non visualized. FINDINGS: UTERUS: The myometrium has homogeneous echotexture without mass. There is a gestational sac within the endom etrial cavity measuring 1.35 x 0.5 x 0.92 cm. It contains a yolk sac. No embryo is seen. RIGHT OVARY: Ovary contains no mass or significant cystic lesion. Follicles are present. LEFT OVARY: Ovary contains no mass or significant cystic lesion. Corpus luteal cyst is present. MISCELLANEOUS: There is trace simple appearing free fluid in the posterior cul-de-sac. CONCLUSION: 1. There are findings consistent with an early intrauterine with estimated age based on ges tational sac size of 5 weeks and one day. No embryo is identified. Suggest followup imaging and follo wup beta hCG values to confirm appropriate progression of . 2. There is trace simple appearing free fluid in the posterior cul-de-sac within the pelvis. Blaze Campbell MD on August 25, 2017 at 1:56 Board Certified Radiologist. This report was verified electronically.
[2017-08-25] MEDS ORDERED: ZOFR4TAB PO (02:43)
--- NOTE | 2017-08-25 02:44 | PD ---
Physical Exam Date Seen by Provider: Aug 25, 2017 Time Seen by Provider: 00:25 Narrative Has an ultrasound which I am following up shows an IUP 5 weeks gestational sac with a yolk sac no pole is seen. Her quant is 8050 patient is discharged with Zofran and the follow-up as an outpatient for further eval. Her cervical culture is negative for clue cells negative for trichomonas the GC chlamydia is pending patient will be notified by the lab if they are positive Data Data Last Documented VS Vital Signs Date Time Temp Pulse Resp B/P (MAP) Pulse Ox O2 Delivery O2 Flow Rate FiO2 08/25/17 03:15 98.2 84 18 122/74 (90) 98 Room Air Orders Orders Beta Hcg (Quant/Titer) (08/24/17 23:31) Complete Blood Count With Diff (08/24/17 23:31) Basic Metabolic Panel (Bmp) (08/24/17 23:31) Complete Rh (08/24/17 23:31) Urinalysis - C+S If Indicated (08/24/17 23:31) Iv Access Insert/Monitor (08/24/17 23:31) Ecg Monitoring (08/24/17 23:31) Sodium Chlor 0.9% 1000 Ml Inj (Ns 1000 M (08/24/17 23:31) Ondansetron Inj (Zofran Inj) (08/24/17 23:45) Ed Urine Pregnancytest Poc (08/24/17 23:31) Gc And Chlamydia Pcr (08/25/17 00:11) Wet Prep Profile (08/25/17 00:11) Acetaminophen (Tylenol) (08/25/17 00:30) Us Pelvis (Ques Pr/Ect)W Trans (08/25/17 ) Ed Discharge Order (08/25/17 02:46) Labs Laboratory Tests Test 08/24/17 23:45 08/25/17 00:21 White Blood Count 12.2 TH/MM3 Red Blood Count 5.06 MIL/MM3 Hemoglobin 14.7 GM/DL Hematocrit 43.0 % Mean Corpuscular Volume 84.9 FL Mean Corpuscular Hemoglobin 29.0 PG Mean Corpuscular Hemoglobin Concent 34.1 % Red Cell Distribution Width 13.8 % Platelet Count 214 TH/MM3 Mean Platelet Volume 10.1 FL Neutrophils (%) (Auto) 89.2 % Lymphocytes (%) (Auto) 5.1 % Monocytes (%) (Auto) 4.9 % Eosinophils (%) (Auto) 0.2 % Basophils (%) (Auto) 0.6 % Neutrophils # (Auto) 10.9 TH/MM3 Lymphocytes # (Auto) 0.6 TH/MM3 Monocytes # (Auto) 0.6 TH/MM3 Eosinophils # (Auto) 0.0 TH/MM3 Basophils # (Auto) 0.1 TH/MM3 CBC Comment DIFF FINAL Differential Comment Urine Collection Type CLEAN CATCH Urine Color YELLOW Urine Turbidity CLEAR Urine pH 7.5 Urine Specific [place] 1.015 Urine Protein 30 mg/dL Urine Glucose (UA) NEG mg/dL Urine Ketones 80 OR GREATER mg/dL Urine Occult Blood NEG Urine Nitrite NEG Urine Bilirubin NEG Urine Urobilinogen 1.0 MG/DL Urine Leukocyte Esterase NEG Urine RBC 0-3 /hpf Urine WBC 0-2 /hpf Urine Squamous Epithelial Cells 6-8 /hpf Urine Bacteria OCC /hpf Urine Mucus MOD /lpf Microscopic Urinalysis Comment CULT NOT INDICATED Blood Urea Nitrogen 10 MG/DL Creatinine 0.70 MG/DL Random Glucose 100 MG/DL Calcium Level 8.9 MG/DL Sodium Level 136 MEQ/L Potassium Level 3.7 MEQ/L Chloride Level 103 MEQ/L Carbon Dioxide Level 24.6 MEQ/L Anion Gap 8 MEQ/L Estimat Glomerular Filtration Rate 102 ML/MIN Human Chorionic Gonadotropin, Quant 8050 MIU/ML Clue Cells (Wet Prep) NONE SEEN Vaginal Trichomonas (Wet Prep) NONE SEEN Vaginal Yeast (Wet Prep) NONE SEEN MDM Medical Record Reviewed: Yes Supervised Visit with BELKIS: No Differential Diagnosis Ectopic versus PID versus early versus menstrual cramps versus contraction pain versus hyperemesis gravidarum Narrative Course Patient is given Zofran fluid and US shows IUP with yolk sac dates 5 weeks pt reassure and told that if cultures cervical grow positive lab will call her Diagnosis Primary Impression: Early stage of Scripts Ondansetron (Zofran) 4 Mg Tab 4 MG PO Q6HR Y for NAUSEA OR VOMITING, #14 TAB 0 Refills Prov: Los Núñez MD 08/25/17 Disposition: 01 DISCHARGE HOME Condition: Good Los Núñez MD Aug 25, 2017 02:44
[2017-08-25 03:15] VITALS: BP 122/74; PULSE 84; RESP 18; TEMP 98.2; O2SAT 98
== END 2017-08-25 03:15 | disposition home or self-care (01) ==
LOC: PHED 22:37
DX: O26.891 Other specified pregnancy related conditions, first trimester (principal); R11.2 Nausea with vomiting, unspecified; Z3A.01 Less than 8 weeks gestation of pregnancy
CPT/HCPCS: 76700; 76817; 80048; 81001; 84702; 84703; 85025; 87210; 87491; 87591; 96361; 96374; 99284; J2405; J7030

== ENCOUNTER 2017-09-20 19:50 | Emergency (ER) | payer MEDICAID ==
[~2017-09-20] VITALS: Ht 160 cm; Wt 61.7 kg
[~2017-09-20 19:50] MED LIST changes: -IBUP-232 PO; -SENN1TAB PO; +ZOFR4TAB PO
[2017-09-20 20:29] VITALS: BP 131/69; PULSE 89; RESP 18; TEMP 98.9; O2SAT 100
--- NOTE | 2017-09-20 21:20 | PD ---
HPI Chief Complaint: Complaint Time Seen by Provider: 20:58 Travel History International Travel<30 days: No Contact w/Intl Traveler<30days: No Traveled to known affect area: No History of Present Illness HPI The patient is a 26-year-old female who is a who is currently 9 weeks who presents to the emergency department for dysuria, frequency, urgency, low back pain, and vaginal discharge. The patient called her lead technical architect at [facility], was referred to the emergency department for progressing symptoms. The patient states the discharge is yellow to green in nature, thick, and associated with mild perivaginal irritation. She also complains of mild urgency and frequency with dysuria. The pain radiates around to the lower aspect of the back. The patient states she already had an ultrasound which revealed an IUP. The patient denies any upper abdominal pain, nausea, or vomiting. Symptoms are moderate. There are no current alleviating or exacerbating factors. PFSH Past Medical History Anemia: Yes Anxiety: Yes Diminished Hearing: No Immunizations Current: Yes ?: LMP: 07/15/17 ? : 3 Para: 2 Ovarian Cysts: Yes Social History Alcohol Use: Yes (rarely) Tobacco Use: No Substance Use: No Allergies-Medications (Allergen,Severity, Reaction): Coded Allergies: Sulfa (Sulfonamide Antibiotics) (Verified Allergy, Severe, HIVES, 09/20/17) Reported Meds & Prescriptions Reported Meds & Active Scripts Active Reported Vitafol-One Capsule ( 26/Iron Ps/Folic/Dha) 29 Mg Iron-1 Mg-200 Mg Capsule 1 Tab DAILY Review of Systems Except as stated in HPI: all other systems reviewed are Neg General / Constitutional: No: Fever Cardiovascular: No: Chest Pain or Discomfort Respiratory: No: Shortness of Breath Gastrointestinal: No: Nausea, Vomiting, Diarrhea, Abdominal Pain Genitourinary: Positive: Urgency, Frequency, Dysuria, Pelvic Pain, Discharge, No: Vaginal Bleeding Skin: No Rash Physical Exam Narrative GENERAL: Awake, alert, pleasant 26-year-old female who appears her stated age and is in no acute respiratory distress. SKIN: Focused skin assessment warm/dry. HEAD: Atraumatic. Normocephalic. EYES: No injection or drainage. ENT: No nasal bleeding or discharge. Mucous membranes pink and moist. NECK: Trachea midline. No JVD. GASTROINTESTINAL: Abdomen soft, mild suprapubic tenderness. No guarding or rigidity. Back: No CVA tenderness. Mild tenderness over the lower paravertebral muscle. Pelvic: The exam was performed in the presence of a female nurse. External examination reveals no rashes or lesions. Speculum examination reveals closed cervix. White discharge in the vaginal vault. No bleeding noted. MUSCULOSKELETAL: No obvious deformities. No clubbing. No cyanosis. No edema. NEUROLOGICAL: Awake and alert. No obvious cranial nerve deficits. Motor grossly within normal limits. Normal speech. PSYCHIATRIC: Appropriate mood and affect; insight and judgment normal. Data Data Last Documented VS Vital Signs Date Time Temp Pulse Resp B/P (MAP) Pulse Ox O2 Delivery O2 Flow Rate FiO2 09/20/17 21:09 (89) 09/20/17 20:29 98.9 89 18 100 Orders Orders Gc And Chlamydia Pcr (09/20/17 21:15) Wet Prep Profile (09/20/17 21:15) Urinalysis - C+S If Indicated (09/20/17 21:15) Urine Culture (09/20/17 21:15) Labs Laboratory Tests Test 09/20/17 21:15 09/20/17 22:02 Urine Color YELLOW Urine Turbidity CLEAR Urine pH 6.0 Urine Specific [place] 1.020 Urine Protein NEG mg/dL Urine Glucose (UA) NEG mg/dL Urine Ketones NEG mg/dL Urine Occult Blood NEG Urine Nitrite NEG Urine Bilirubin NEG Urine Urobilinogen 0.2 MG/DL Urine Leukocyte Esterase MOD Urine RBC 0-2 /hpf Urine WBC 25-49 /hpf Urine Squamous Epithelial Cells 6-8 /hpf Urine Bacteria OCC /hpf Microscopic Urinalysis Comment CULTURE INDICATED Clue Cells (Wet Prep) NONE SEEN Vaginal Trichomonas (Wet Prep) NONE SEEN Vaginal Yeast (Wet Prep) NONE SEEN MDM Medical Decision Making Medical Screen Exam Complete: Yes Emergency Medical Condition: Yes Medical Record Reviewed: Yes Interpretation(s) Date/Time Source Procedure Growth Status 09/20/17:15 Urine Clean Catch Urine Culture Pending Received Laboratory Tests Test 09/20/17 21:15 09/20/17 22:02 Urine Color YELLOW Urine Turbidity CLEAR Urine pH 6.0 Urine Specific [place] 1.020 Urine Protein NEG mg/dL Urine Glucose (UA) NEG mg/dL Urine Ketones NEG mg/dL Urine Occult Blood NEG Urine Nitrite NEG Urine Bilirubin NEG Urine Urobilinogen 0.2 MG/DL Urine Leukocyte Esterase MOD Urine RBC 0-2 /hpf Urine WBC 25-49 /hpf Urine Squamous Epithelial Cells 6-8 /hpf Urine Bacteria OCC /hpf Microscopic Urinalysis Comment CULTURE INDICATED Clue Cells (Wet Prep) NONE SEEN Vaginal Trichomonas (Wet Prep) NONE SEEN Vaginal Yeast (Wet Prep) NONE SEEN Differential Diagnosis Differential diagnosis includes UTI, cervicitis, vaginitis, PID, normal . Narrative Course UA was sent to lab. A pelvic exam was performed in the presence of a female nurse and gonorrhea/chlamydia PCR and wet prep were sent to lab. Wet prep is negative. UA is positive. The patient will be placed on Macrobid, is advised to follow-up with her lead technical architect. She will be provided a copy of her lab results at discharge. Diagnosis Primary Impression: UTI (urinary tract infection) during Qualified Codes: O23.41 - Unspecified infection of urinary tract in , first trimester Patient Instructions: General Instructions Additional Instructions: Continue to take a vitamin daily. Follow-up with your lead technical architect. Macrobid as directed. Plenty fluids to stay hydrated. Please provide the patient a copy of her lab results at discharge. Return if symptoms worsen or progress. Med/Other Pt SpecificInfo: Prescription(s) given Scripts Nitrofurantoin Monohydrate Macrocrystals (Macrobid) 100 Mg Cap 100 MG PO BID for Infection for 10 Days, #20 CAP 0 Refills Prov: Mason Portillo MD 09/20/17 Disposition: DISCHARGE HOME Condition: Stable Mason Portillo MD Sep 20, 2017 21:20
[2017-09-20] MEDS ORDERED: VITACAP8 (21:21)
[2017-09-20 21:44] LABS: BILIRUBIN, URINE NEG (NEG); BLOOD, URINE NEG (NEG); GLUCOSE,URINE NEG (NEG); KETONE, URINE NEG (NEG); NITRITE,URINE NEG (NEG); URINE COLOR YELLOW (YELLW/STRAW); URINE LEUKOCYTE ESTERASE MOD (NEG)
[2017-09-20 21:48] LABS: BACTERIA, URINE OCC /hpf; RBC, URINE 0-2 /hpf (0-3)
[2017-09-20] MEDS ORDERED: MACR100C2 PO (22:27)
[2017-09-20 23:23] VITALS: BP 128/68
== END 2017-09-20 23:28 | disposition home or self-care (01) ==
LOC: PHED 19:50
DX: O23.41 Unspecified infection of urinary tract in pregnancy, first trimester (principal); O99.341 Other mental disorders complicating pregnancy, first trimester; F41.9 Anxiety disorder, unspecified; Z3A.09 9 weeks gestation of pregnancy
CPT/HCPCS: 81001; 87086; 87210; 87491; 87591; 99284

== ENCOUNTER → 2017-11-17 | Outpatient (CLI) | payer MEDICAID ==
[~2017-11-17] MED LIST changes: +CHLO.12%30 SWISH-SPIT; +MACR100C2 PO; +MAGICPED SWISH-SWAL; +PENI500T PO; +VITACAP8; -ZOFR4TAB PO
== END ==
LOC: HPND 08:36
PROVIDERS: ATTEND Obstetrics & Gynecology
DX: O44.42 Low lying placenta NOS or without hemorrhage, second trimester (principal); O09.292 Supervision of pregnancy with other poor reproductive or obstetric history, second trimester
CPT/HCPCS: 76811; 76817

== ENCOUNTER 2017-11-20 09:49 | Emergency (ER) | payer MEDICAID ==
[~2017-11-20] VITALS: Ht 160 cm; Wt 63.0 kg
[~2017-11-20 09:49] MED LIST changes: -CHLO.12%30 SWISH-SPIT; -MAGICPED SWISH-SWAL; -PENI500T PO
[2017-11-20 09:54] VITALS: BP 108/59; PULSE 83; RESP 16; TEMP 98.2; O2SAT 100
[2017-11-20] MEDS ORDERED: PENI500T PO (11:09)
[2017-11-20] MEDS ORDERED: CHLO.12%30 SWISH-SPIT (11:09)
[2017-11-20] MEDS ORDERED: MAGICPED SWISH-SWAL (11:09)
--- NOTE | 2017-11-20 11:13 | PD ---
HPI Chief Complaint: Oral / Dental Pain or Problem Time Seen by Provider: 10:57 Travel History International Travel<30 days: No Contact w/Intl Traveler<30days: No Traveled to known affect area: No History of Present Illness HPI 26 year female presents emergency department for evaluation of left lower gum and tooth pain that started several days ago. Says that she began having discomfort in the area weeks ago but yesterday the swelling increased and she felt as if she had trouble swallowing because of the pain. She also says that she had some swelling of her tonsils and felt swelling in her left ear so she decided to come to emergency department evaluation. The pain is 4/10 and fluctuates in severity. Says the pain is throbbing when present. Denies fevers or chills. Denies abnormal tastes in her mouth. says that she noticed her wisdom tooth came through several weeks ago and this is likely the cause. Says she is due for a dental cleaning this week however, she may reschedule because of the pain. Note that she had has clicking of the jaw but this has not been an issue. She is 17.5 weeks and is concerned about medications that are safe for . PFSH Past Medical History Anemia: Yes Anxiety: Yes Diminished Hearing: No Immunizations Current: Yes ?: : 3 Para: 2 Ovarian Cysts: Yes Past Surgical History Surgical History: No Previous Surgery Social History Alcohol Use: Yes (rarely) Tobacco Use: No Substance Use: No Allergies-Medications (Allergen,Severity, Reaction): Coded Allergies: Sulfa (Sulfonamide Antibiotics) (Verified Allergy, Severe, HIVES, 09/20/17) Reported Meds & Prescriptions Reported Meds & Active Scripts Active Magic Mouthwash Pediatric/Adult Liq (Lidocaine/Diphenhydr/Alum/Mg/Simeth) 60 Ml Susp 5 Ml SWISH-SWAL ACHS 7 Days Each 5mL contains: Diphenydramine 4.5mg, Viscous Lidocaine 2% 10mg, Maalox Advanced Regular Strength 2.7ml Penicillin V Potassium 500 Mg Tab 500 Mg PO Q8H 10 Days Chlorhexidine Gluconate (Mouth) Liq (Chlorhexidine Gluconate) 0.12% Soln 15 Ml SWISH-SPIT BID 10 Days Reported Vitafol-One Capsule ( 26/Iron Ps/Folic/Dha) 29 Mg Iron-1 Mg-200 Mg Capsule 1 Tab DAILY Review of Systems Except as stated in HPI: all other systems reviewed are Neg Physical Exam Narrative GENERAL: Well-nourished, well-developed patient, in NAD SKIN: Focused skin assessment warm/dry. No rashes or lesions. HEAD: Normocephalic. Atraumatic. EYES: No scleral icterus. No injection or drainage. THROAT: No pharyngeal injection, exudates, or tonsillar hypertrophy. Airway is patent. Left lower molar-no fluctuance or edema of the gingiva. No obvious edema or erythema. No exudate. Area of gingiva appears pedunculated and consistent with her history of molar growth. NECK: Supple, trachea midline. No JVD or lymphadenopathy. No meningismus. CARDIOVASCULAR: Regular rate and rhythm without murmurs, gallops, or rubs. RESPIRATORY: Breath sounds equal bilaterally. No accessory muscle use. No wheezes, rales, or rhonchi MUSCULOSKELETAL: No cyanosis, or edema. BACK: Nontender without obvious deformity. No CVA tenderness. Data Data Last Documented VS Vital Signs Date Time Temp Pulse Resp B/P (MAP) Pulse Ox O2 Delivery O2 Flow Rate FiO2 11/20/17 11:23 11/20/17 09:54 98.2 83 16 100 Orders Orders Ed Discharge Order (11/20/17 11:13) MDM Medical Decision Making Medical Screen Exam Complete: Yes Emergency Medical Condition: Yes Differential Diagnosis Left molar dental infection, abscess, gingivitis Narrative Course 26 year female presents emergency department for evaluation of left lower gum and tooth pain that started several days ago. Says that she began having discomfort in the area weeks ago but yesterday the swelling increased and she felt as if she had trouble swallowing because of the pain. She also says that she had some swelling of her tonsils and felt swelling in her left ear so she decided to come to emergency department evaluation. The pain is 4/10 and fluctuates in severity. Says the pain is throbbing when present. Denies fevers or chills. Denies abnormal tastes in her mouth. says that she noticed her wisdom tooth came through several weeks ago and this is likely the cause. Says she is due for a dental cleaning this week however, she may reschedule because of the pain. Note that she had has clicking of the jaw but this has not been an issue. She is 17.5 weeks and is concerned about medications that are safe for . Vital signs are stable. Physical exam findings consistent with dental infection versus gingivitis. Patient is rather reluctant to take antibiotics so prescribe chlorhexidine mouth rinse. Advised that if her pain and perceived swelling does not decrease in 1-2 days that she should start amoxicillin. Magic mouthwash for comfort. She may use Tylenol for her pain. Follow-up with the dentist as discussed. Diagnosis Primary Impression: Dental infection Referrals: Dentist Additional Instructions: Use the chlorhexidine mouth rinse as prescribed for 1-2 days. If in 1-2 days her symptoms do not improve or worsen start the penicillin. Use the Magic mouthwash for symptom relief. Continue Tylenol as needed. Although with the dentist as discussed. Scripts Ssinutexgifdyum-Soeqqvhys-Fxu-Alum-Simeth Liq (Magic Mouthwash Pediatric/Adult Liq) 60 Ml Susp 5 ML SWISH-SWAL ACHS for Mouth sores for 7 Days, #60 ML 0 Refills Each 5mL contains: Diphenydramine 4.5mg, Viscous Lidocaine 2% 10mg, Maalox Advanced Regular Strength 2.7ml Prov: Kristal Rojas MD 11/20/17 Penicillin V Potassium (Penicillin V Potassium) 500 Mg Tab 500 MG PO Q8H for Infection for 10 Days, #30 TAB 0 Refills Prov: Kristal Rojas MD 11/20/17 Chlorhexidine Gluconate (Mouth) Liq (Chlorhexidine Gluconate (Mouth) Liq) 0.12% Soln 15 ML SWISH-SPIT BID for 10 Days, #300 ML 0 Refills Prov: Kristal Rojas MD 11/20/17 Disposition: 01 DISCHARGE HOME Condition: Stable Emma Garcia Nov 20, 2017 11:13
== END 2017-11-20 11:23 | disposition home or self-care (01) ==
LOC: PHED 09:49 → PHEFT 11:23
DX: O99.612 Diseases of the digestive system complicating pregnancy, second trimester (principal); K04.7 Periapical abscess without sinus; O99.342 Other mental disorders complicating pregnancy, second trimester; F41.9 Anxiety disorder, unspecified; O34.82 Maternal care for other abnormalities of pelvic organs, second trimester; N83.209 Unspecified ovarian cyst, unspecified side; Z3A.17 17 weeks gestation of pregnancy
CPT/HCPCS: 99283

== ENCOUNTER 2017-11-25 04:37 | Emergency (ER) | payer MEDICAID ==
[~2017-11-25] VITALS: Ht 160 cm; Wt 62.3 kg
[~2017-11-25 04:37] MED LIST changes: +CHLO.12%30 SWISH-SPIT; -MACR100C2 PO; +MAGICPED SWISH-SWAL; +PENI500T PO
[2017-11-25 04:42] VITALS: BP 112/69; PULSE 92; RESP 18; TEMP 97.9; O2SAT 100
[2017-11-25 04:53] VITALS: BP 112/69; PULSE 92; RESP 20; TEMP 97.9; O2SAT 100
[2017-11-25] MEDS ORDERED: MAKE250I IM (05:11)
--- NOTE | 2017-11-25 05:26 | PD ---
HPI Chief Complaint: Pain: Acute or Chronic Time Seen by Provider: 05:02 Travel History International Travel<30 days: No Contact w/Intl Traveler<30days: No Traveled to known affect area: No History of Present Illness HPI 26yo F who is 18.5 weeks here with c/o right leg pain yesterday and right arm pain today. Said she usually gets pain in her leg after her progesterone injection in the buttocks and she had progesterone injection 2 days ago. Pain was from right buttock to right thigh. It was sharp, shooting. Called her OBGYN and she said this is sciatica. Said it improved after her fiance rubbed it with his hand. Said now the pain is more on her right forearm. Shooting down to her fingers. Denies any fever, trauma, focal weakness or numbness, chest pain, sob, vomiting, abdominal pain, vaginal bleeding. PFSH Past Medical History Medical History: Denies Significant Hx Anemia: Yes Anxiety: Yes Diminished Hearing: No Reproductive: Yes (2 pre-term deliveries) Immunizations Current: Yes ?: LMP: date of conception 04/24/17 : 3 Para: 2 Ovarian Cysts: Yes Past Surgical History Surgical History: No Previous Surgery Social History Alcohol Use: No Tobacco Use: No Substance Use: No Allergies-Medications (Allergen,Severity, Reaction): Coded Allergies: Sulfa (Sulfonamide Antibiotics) (Verified Allergy, Severe, HIVES, 11/25/17) Reported Meds & Prescriptions Reported Meds & Active Scripts Active Reported [place] Inj (Hydroxyprogesterone Caproate) 250 Mg/Ml Inj Unknown Dose IM WEEKLY Vitafol-One Capsule ( 26/Iron Ps/Folic/Dha) 29 Mg Iron-1 Mg-200 Mg Capsule 1 Tab DAILY Review of Systems Except as stated in HPI: all other systems reviewed are Neg Physical Exam Narrative GENERAL: 26yo F in mild distress. SKIN: Focused skin assessment warm/dry. HEAD: Atraumatic. Normocephalic. EYES: Pupils equal and round. No scleral icterus. No injection or drainage. ENT: No nasal bleeding or discharge. Mucous membranes pink and moist. NECK: Trachea midline. No JVD. CARDIOVASCULAR: Regular rate and rhythm. No murmur appreciated. RESPIRATORY: No accessory muscle use. Clear to auscultation. Breath sounds equal bilaterally. GASTROINTESTINAL: Abdomen soft, gravid abdomen. Nontender. No rebound tenderness or guarding. MUSCULOSKELETAL: RUE: Right forearm compartment soft. FROM right shoulder, elbow and wrist. FROM in all digits. Sensation intact. No erythema or edema. RLE: Compartments soft. FROM right hip, knee. No ttp hip. Distal pulses intact. Sensation intact. NEUROLOGICAL: Awake and alert. No obvious cranial nerve deficits. Motor grossly within normal limits. Normal speech. PSYCHIATRIC: Appropriate mood and affect; insight and judgment normal. Data Data Last Documented VS Vital Signs Date Time Temp Pulse Resp B/P (MAP) Pulse Ox O2 Delivery O2 Flow Rate FiO2 11/25/17 04:53 97.9 92 20 112/69 (83) 100 Orders Orders Basic Metabolic Panel (Bmp) (11/25/17 05:19) Creatine Kinase (Cpk) (11/25/17 05:19) Acetaminophen (Tylenol) (11/25/17 05:30) Ed Poc Ultrasound (11/25/17 ) [facility] Medical Decision Making Medical Screen Exam Complete: Yes Emergency Medical Condition: Yes Differential Diagnosis Sciatica vs. muscle cramps vs. dehydration vs. electrolyte abnormality vs. rhabdomyolysis Narrative Course 26yo F well appearing female here with c/o right leg pain that she usually gets after progesterone injection but said now here right arm also hurts. No trauma or signs of infection. Good range of motion in all digits and neurovascular intact. Pt given acetaminophen. She feels movement and has no abdominal pain or vaginal bleeding. Will check electrolytes and CPK. Pt said she does not want blood drawn. Said she just wants to go home and can return if anything worsens. Procedures Procedure Narrative Emergency Department Pelvic ultrasound was performed with patient consent. The curvilinear probe was used in the transverse and sagittal views within the suprapubic region revealing single intrauterine . heart rate was 130bpm. Diagnosis Primary Impression: Arm pain, right Patient Instructions: General Instructions Departure Forms: Tests/Procedures Additional Instructions: Please follow up with your OBGYN and primary care physician as outpatient. Return to the ED if symptoms worsen. Please take acetaminophen as needed for pain. Med/Other Pt SpecificInfo: No Change to Meds Disposition: 01 DISCHARGE HOME Condition: Stable Melissa Moore Nov 25, 2017 05:26
[2017-11-25] MEDS ORDERED: ACETAMINOPHEN 500 MG CPLT PO ONE (05:30)
[2017-11-25 05:59] VITALS: BP 101/62
== END 2017-11-25 06:03 | disposition home or self-care (01) ==
LOC: PHED 04:37
DX: O99.89 Other specified diseases and conditions complicating pregnancy, childbirth and the puerperium (principal); M79.601 Pain in right arm; M79.604 Pain in right leg; O99.012 Anemia complicating pregnancy, second trimester; O99.342 Other mental disorders complicating pregnancy, second trimester; F41.9 Anxiety disorder, unspecified; Z3A.18 18 weeks gestation of pregnancy
CPT/HCPCS: 99282

== ENCOUNTER → 2017-12-16 | Outpatient (CLI) | payer MEDICAID ==
[~2017-12-16] MED LIST changes: -CHLO.12%30 SWISH-SPIT; -MAGICPED SWISH-SWAL; +MAKE250I IM; -PENI500T PO
== END ==
LOC: HPND 10:32
PROVIDERS: ATTEND Obstetrics & Gynecology
DX: O09.292 Supervision of pregnancy with other poor reproductive or obstetric history, second trimester (principal)
CPT/HCPCS: 76816; 76817